=== PATIENT | male | born 1955 | race Caucasian/White ===

== ENCOUNTER 2020-01-26 08:11 | Outpatient (CLI) | payer MEDICARE, BC, SELFPAY ==
[2020-01-26 08:55] VITALS: BMI 29.4
--- NOTE | 2020-01-26 08:55 | NMCV_ITS ---
NM too perf SPECT r/s* [id number] Pb Tejeda III Age: 64 Gender: M : 1955 Exam Date: 01/26/2020 08:55 Ordering Phys: Tatiana Spring NP Technologist: NIALL Islas Exam Location: [facility] Indications: CHEST PAIN STRESS TEST Please see separate stress test report in [facility] for full findings IMAGE PROTOCOL Rest/Stress 1 Lexiscan Day Radiopharmaceutical Dose (mCi) Administration Site Administered by Rest: Tc-99m 11.0 IV NIALL Islas Sestamibi Stress:Tc-99m 33.0 IV NIALL Corona Sestamibi Rest: 26-Jan-2020 60 Discovery 630 Stress: 26-Jan-2020 30 Discovery 630 0.4mg Lexiscan. Images obtained in supine and prone position. SPECT RESULTS Technical Quality: Excellent Raw Data Analysis: Normal Image Corrections: No attenuation or motion correction applied Summed Stress Score: 0 Summed Rest Score: 7 Summed Difference Score: 0 PERFUSION FINDINGS SPECT images demonstrate homogeneous tracer distribution throughout the myocardium. FUNCTIONAL RESULTS (calculated via Gated SPECT) Stress Image LV EF (%): 70 Stress EDV (mL):113 TID: 1.15 Stress ESV (mL):34 Rest Image LV EF (%): 70 FUNCTIONAL FINDINGS: There is normal left ventricular systolic function. IMPRESSIONS Myocardial perfusion imaging is normal. TID ratio is elevated 1.1 which could be secondary to left-ventricular hypertrophy/subendocardial ischemia in the absence of other parameters for multivessel coronary artery disease. EKG segment will be documented separately Caitlin Mckay MD (Electronically Signed) Final Date: 26 January 2020 17:29 S
--- NOTE | 2020-01-26 08:55 | ECG_ITS ---
[facility] Test Date: 2020-01-26 Pat Name: Pb Tejeda III Department: Room: Gender: Male Manager Of Compensation: Danika Oliver : 1955 Requested By: Tatiana Spring Order Number: [id number] Phoebe MD: Kash Zamudio M.D. Interpretive Statements NAME OF STUDY: LEXISCAN SESTAMIBI STRESS TEST INDICATION: Chest Pain, LEXISCAN STRESS TEST ORDERING PHYSICIAN: Unknown CLINICAL INFORMATION: Unknown INTERPRETATION: 1. The patient was brought to the laboratory where Lexiscan was infused over 20 seconds. The resting blood pressure was 154/89. Maximum blood pressure was 156/89. The resting heart rate was 78 beats per minute. The maximum heart rate is 90 beats per minute. 2. The baseline electrocardiogram reveals sinus rhythm and is a normal tracing 3. With Lexiscan infusion, there were no ST segment changes to suggest ischemia. 4. The patient experienced no symptoms or arrhythmias during the examination. CONCLUSION: 1. Unremarkable Lexiscan infusion. 2. Nuclear imaging to follow. Electronically Signed On 01-26-2020 17:23:12 CDT by Kash Zamudio M.D. [id number]
[2020-01-26 11:18] VITALS: BP 150/79; PULSE 90
== END 2020-01-26 08:12 | disposition home or self-care (01) ==
LOC: RAD 08:14 → CDL 08:34
PROVIDERS: PCP Family Medicine; Visit Provider Nurse Practitioner Family
DX: R07.9 Chest pain, unspecified (principal)
CPT/HCPCS: 78452; 93017; A9500; J2785

== ENCOUNTER → 2020-08-03 16:59 | Outpatient (BNVA) | payer MEDICARE, BC, SELFPAY | PROVIDERS: PCP Family Medicine; Visit Provider Nurse Practitioner Family | DX: J06.9 Acute upper respiratory infection, unspecified (principal); Z20.828 Contact with and (suspected) exposure to other viral communicable diseases | CPT/HCPCS: 87635 ==

== ENCOUNTER → 2022-03-20 12:34 | Outpatient (BNVA) | payer MEDICARE, BC, SELFPAY | PROVIDERS: PCP Family Medicine; Visit Provider Otolaryngology | DX: J31.0 Chronic rhinitis (principal); J32.9 Chronic sinusitis, unspecified; G47.33 Obstructive sleep apnea (adult) (pediatric); E66.9 Obesity, unspecified; Z68.32 Body mass index [BMI] 32.0-32.9, adult | CPT/HCPCS: 99203; 99204 ==

== ENCOUNTER 2022-05-19 11:50 | Outpatient (CLI) | payer MEDICARE, BC, SELFPAY ==
--- NOTE | 2022-05-19 | USCV_ITS ---
Pb Tejeda Age: 66 Gender: M : 1955 Exam Date: 05/19/2022 12:08 Ordering Phys: Tatiana Spring NP Technologist: CT Exam Location: [facility] [place] Indication: aaa HISTORY: Diameter (cm) AP x Transverse x Length Velocity (cm/s) Waveform Prox Aorta: 2.74 x 2.77 x 92.30 Triphasic Mid Aorta: 1.87 x 1.93 x 97.00 Triphasic Distal Aorta: 1.42 x 1.75 x 75.70 Triphasic Right Iliac Prox: 1.09 x 1.29 x 62.20 Triphasic Left Iliac Prox: 1.25 x 1.47 x 67.00 Triphasic Stent Prox Landing x x Aneurysmal Sac Max x x Lt Lat Sac Dim Rt Lat Sac Dim Stent Dist Landing x x Right Iliac Stent x x Left Iliac Stent x x Right Renal Art Left Renal Art FINDINGS: Comparison: none available. No evidence of abdominal aortic aneurysm. Ectatic abdominal aorta with evidence of atherosclerotic plaque noted. Normal Doppler flow velocites noted throught the aorta and common iliac arteries. CONCLUSIONS No evidence of abdominal aortic or bilateral iliac aneurysm. Dr. Tete Mckinney DO (Electronically Signed) Final Date: 19 May 2022 14:25 S
== END 2022-05-19 11:51 | disposition home or self-care (01) ==
LOC: RAD 11:54
PROVIDERS: PCP Nurse Practitioner Family; Visit Provider Nurse Practitioner Family
DX: E11.65 Type 2 diabetes mellitus with hyperglycemia (principal); I10 Essential (primary) hypertension; E78.5 Hyperlipidemia, unspecified; Z68.36 Body mass index [BMI] 36.0-36.9, adult
CPT/HCPCS: 76706

== ENCOUNTER → 2023-01-03 09:23 | Outpatient (BNVA) | payer MEDICARE, BC, SELFPAY | PROVIDERS: PCP Nurse Practitioner Family; Referring Provider Dermatology; Visit Provider Specialist | DX: M16.11 Unilateral primary osteoarthritis, right hip (principal) | CPT/HCPCS: 73502; 99204 ==

== ENCOUNTER → 2023-01-03 09:34 | Outpatient (BNVA) | payer MEDICARE, BC, SELFPAY | PROVIDERS: PCP Nurse Practitioner Family; Referring Provider Dermatology; Visit Provider Specialist | DX: M25.551 Pain in right hip (principal); M16.11 Unilateral primary osteoarthritis, right hip | CPT/HCPCS: 73502 ==

== ENCOUNTER 2023-01-22 14:47 | Outpatient (CLI) | payer MEDICARE, SELFPAY ==
--- NOTE | 2023-01-22 14:56 | US_ITS ---
WS: [id number] INDICATION: LEFT forearm lump TECHNIQUE: Ultrasound soft tissue LEFT forearm FINDINGS: Ultrasound soft tissue LEFT forearm area of concern. Normal underlying subcutaneous soft ti ssues. No focal cystic or solid abnormalities. No drainable fluid collections. US/US soft tissue/extremity [id number] IMPRESSION: No suspicious abnormalities in the area of concern.
== END 2023-01-22 14:48 | disposition home or self-care (01) ==
PROVIDERS: PCP Nurse Practitioner Family; Visit Provider Nurse Practitioner Family
DX: M79.632 Pain in left forearm (principal)
CPT/HCPCS: 76882

== ENCOUNTER 2023-01-24 07:37 | Outpatient (CLI) | payer MEDICARE, SELFPAY ==
--- NOTE | 2023-01-24 08:00 | MR_ITS ---
WS: [id number] MRI RIGHT HIP without CONTRAST. COMPARISON: 01/03/2023 radiographs. Multiplanar, multisequence imaging is performed without contrast. There is a large amount of marrow edema involving the RIGHT femoral head and neck. Increased T2 signa l with diffuse low signal on the T1 sequences. Complete loss of the joint space. Subchondral cystic c hanges with loss of cartilage throughout the RIGHT hip. There is also a small amount of edema within the acetabulum. No definite fracture is identified. There is no collapse of the femoral head. At this time no typical changes of osteonecrosis. Small amount of fluid surrounding the hip. Mild narrowing of the LEFT hip joint. No marrow edema. MR/MR hip RT wo con* [id number] IMPRESSION: 1. Advanced degenerative joint disease involving the RIGHT hip. There is marro w edema on both sides of the hip joint with loss of cartilage. 2. Osteochondral changes along the femoral head articular surface. No collapse of the femoral head and no typical changes for osteonecrosis. 3. No definite acute fracture is identified.
== END 2023-01-24 07:38 | disposition home or self-care (01) ==
PROVIDERS: PCP Nurse Practitioner Family; Visit Provider Specialist
DX: M16.11 Unilateral primary osteoarthritis, right hip (principal)
CPT/HCPCS: 73721; 99204

== ENCOUNTER → 2023-02-02 09:54 | Outpatient (BNVA) | payer MEDICARE, SELFPAY | PROVIDERS: PCP Nurse Practitioner Family; Visit Provider Clinical Nurse Specialist Adult Health | DX: Z01.818 Encounter for other preprocedural examination (principal) | CPT/HCPCS: 81000 ==

== ENCOUNTER 2023-02-06 09:29 | Observation (INO) | payer MEDICARE, SELFPAY ==
[2023-02-06] VITALS (15 sets, daily range): BP systolic 118–164; BP diastolic 80–107; PULSE 58–89; RESP 14–18; TEMP 36.1–38; O2SAT 94–100; BMI 36.3
[2023-02-06] MEDS: CELEcoxib 200 mg Capsule 400 MG PO (06:30)
[2023-02-06] MEDS: gabapentin 300 mg Capsule PO (06:31)
[2023-02-06] MEDS: acetaminophen 1,000 MG/100 ML PIGGYBACK 400 MG IV ×3 (06:50→23:05)
[2023-02-06 06:52] LABS: Glucose Point of Care 171 mg/dL (70-110)
--- NOTE | 2023-02-06 06:54 | P.HPUD_ITS ---
Surgery/Procedure H&P Update DATE OF PROCEDURE: February 06, 2023 DATE H&P PERFORMED: 02/01/23 H&P UPDATE INFORMATION: I have reviewed H&P completed within last 30 days, I have examined patient prior to procedure, No changes to prior documentation and H&P is in [facility] [place] on date indicated PLANNED PROCEDURE: Operation Date: 02/06/23 07:00 Proposed Procedures p RIGHT TOTAL HIP ARHTROPLASTY 39162,M16.9(Right) - Suzi Campos MD Related Problem List Diagnoses (1) Primary osteoarthritis of right hip:
[2023-02-06] MEDS: sodium chloride 0.9% 1,000 ML 30 ML IV (07:05)
[2023-02-06] MEDS: ceFAZolin 2,000 MG in sodium chloride 0.9% (plus) 50 ML 100 MG IV ×3 (07:11→23:20)
--- NOTE | 2023-02-06 07:54 | SUR.OPER ---
called S.O. and notified her of surgical start.
[2023-02-06] MEDS: vancomycin 1,000 MG SDV 1000 MG XX (07:56)
[2023-02-06] MEDS: ceFAZolin 1,000 mg SDV 1000 MG IRRIGATION (07:57)
--- NOTE | 2023-02-06 08:35 | ANES.PREANE2 ---
Pre-Anesthetic Assessment Height/Weight: Height 1.8 m Weight 118.388 kg Temp Pulse Resp BP Pulse Ox O2 Del Method 98.4 F 76 18 155/90 94 Room Air 02/06/23 06:22 02/06/23 06:22 02/06/23 06:22 02/06/23 06:22 02/06/23 06:22 02/06/23 06:23 Operation Date: 02/06/23 07:00 Proposed Procedures p RIGHT TOTAL HIP ARHTROPLASTY 23608,M16.9(Right) - Suzi Campos MD Familial anesthetic complications: none Was Beta Rhoda taken within 24 hours: Yes Was Clonidine taken within 24 hours: N/A Last intake: Intake Last Liquid Date 02/05/23 Last Liquid Time 19:00 Last Solid Date 02/05/23 Last Solid Time 13:00 Social No alcohol and No tobacco Exam alert, oriented x 3, clear to auscultation bilaterally and regular rate & rhythm Airway Submandibular: within normal limits Cervical ROM: within normal limits Mallampati: Class II CV/HEM Hypertension Metabolic Diabetes Mellitus, Hyperlipidemia and Morbid Obesity [facility] [place] [facility] Lower Back Pain and Osteoarthritis/DJD Anesthetic Plan ASA status: 3 Anesthesia: Regional (specify below) (SAB) Medications/Allergies Home Medications Medication Instructions Recorded Confirmed Last Taken Type aspirin 81 mg tablet,delayed 81 mg PO DAILY 07/08/20 02/06/23 01/30/23 History release (Adult Aspirin Regimen) ibuprofen 800 mg tablet 800 mg PO Q8H 07/08/20 02/06/23 02/05/23 History metformin 1,000 mg tablet 1,000 mg PO BID 07/08/20 02/06/23 02/05/23 History metoprolol tartrate 50 mg tablet 50 mg PO DAILY 07/08/20 02/06/23 02/06/23 History tramadol 50 mg tablet 50 mg PO Q6H PRN Pain 07/08/20 02/06/23 02/05/23 History gabapentin 400 mg capsule 400 mg PO DAILY 03/20/22 02/06/23 02/04/23 History nitroglycerin 0.3 mg sublingual 0.3 mg sublingual Q5M PRN Chest 01/03/23 02/06/23 Unknown History tablet Pain dulaglutide 0.75 mg/0.5 mL 0.75 mg SUBCUT .weekly 02/01/23 02/06/23 01/30/23 History subcutaneous pen injector (Trulicity) Allergies Allergy/AdvReac Type Severity Reaction Status Date / Time oxycodone [From Percocet] Allergy ADR-halluci Verified 02/06/23 06:09 nations Sulfa (Sulfonamide Allergy welps Verified 02/06/23 06:09 Antibiotics) Current Medications Generic Name Dose Route Start Last Admin Trade Name Freq PRN Reason Stop Dose Admin Sodium Chloride 1,000 mls @ 30 mls/hr 02/06/23 06:00 02/06/23 07:05 Sodium Chloride 0.9% IV 02/07/23 05:59 30 mls/hr .Q24H TIM Administration PFSH Anesthesia Medical History (Updated 02/01/23 @ 09:58 by Patrick Stovall NP) BCC (basal cell carcinoma of skin) 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 HTN (hypertension) Surgical History (Updated 02/01/23 @ 09:53 by Patrick Stovall NP) H/O knee surgery H/O shoulder surgery History of back surgery History of kidney surgery Hx of hernia repair Family History (Updated 02/01/23 @ 09:54 by Patrick Stovall NP) Denies family history of Clotting disorder Anesthesia complication Bleeding disorder Social History Smoking and tobacco status: never smoked Alcohol intake: current Alcohol intake frequency: few times a month Alcohol type: beer Data Anesthesia Cardiac Studies: Sestamibi Stress Test (Cardiology) 01/26/20
--- NOTE | 2023-02-06 10:12 | PC.NURSE ---
Pt arrived to PACU, awake, resting comfortably, dressing to right hip C/D/I, right foot p/w/d, cap refill < 3 seconds, good pedal pulse noted. Ice pack applied. Pt reports sensation above level L1. Eaton catheter patent and draining. Foot pump to left foot on and running. Scant bleeding noted to R nare, nasal airway in procedure.
--- NOTE | 2023-02-06 10:28 | XR_ITS ---
WS: [id number] Exam: XR pelvis 1-2V* [id number] Date/Time of Exam: 02/06/2023 10:38 AM Reason For Exam: S/P CHEKO Right total hip arthroplasty is noted. Postoperative changes in the adjacent soft tissues. XR/XR pelvis 1-2V* [id number] IMPRESSION: 1. Right total hip arthroplasty.
--- NOTE | 2023-02-06 11:03 | P.OP_ITS ---
Operative Report Date of procedure: February 06, 2023 Pre-op diagnosis: Severe osteoarthritis right hip Post-op diagnosis: Severe osteoarthritis right hip Post-op findings: Severe degenerative osteoarthritis right hip Procedure done: Right total hip arthroplasty Implants: The [place] total hip system with a size 56 mm by F alpha code Trident II Tritanium acetabular shell with an MDM liner size 46 inner diameter by F alpha code.? A size 5 Accolade II 127? neck angle hip stem with a size 28 mm x +0 mm Biolox delta ceramic femoral head and a mormon MDM X3 insert size 46F Surgeon: Suzi Campos Senior Strategy Manager: [facility] operating room technicians Anesthesia: MAC (With spinal, ASA 3. Preoperative adductor canal block) Estimated blood loss (mL): 300 IV fluids (mL): 1,200 Urine output (mL): 250 Complications: None Findings: Severe degenerative osteoarthritis of the right hip with deformity of the femoral head. The hip stable at 90 degrees of flexion with 80 degrees of internal rotation. It also was stable to external rotation. Condition: stable Disposition: PACU (Then transferred to floor for postoperative rehabilitation and pain management) Brief History: Pb Tejeda is a 67 year old gentleman presenting today for right total hip arthroplasty. Patient states his pain started about 6 months ago. He does not recall any injury, but he states that the pain is gradually worsening. He states 5/10 pain most of the time. Pain is worse at night. He states the pain is in his groin area and radiates below the knee. He is not able to tolerate rotational movements without sharp-stabbing pain. He states that he went to [place] to have intra-articular cortisone injections from Dr. Frank. The first injection helped for a few weeks, and the second didn't give any relief. He denies having tried physical therapy. After discussion in the office, the patient elected to have right total hip arthroplasty. Risks and complications were discussed with him. Consents were signed and questions were answered. Procedure: Patient was brought to the operating theater.? He was transferred to the operating room table and subsequently administered a spinal anesthesia with MAC, ASA 3 with adductor canal block supplementally.? Following administration of adequate anesthesia, the patient was placed in full lateral position and held in position with a pegboard.? The patient's right lower extremity was then prepped and draped in usual fashion utilizing DuraPrep.? It was draped free.? Following prepping and draping a surgical pause was performed.? At the time of surgical pause, we identified the site and side of surgery.? We also identified the patient and preoperative surgical markings.? Confirmation was made of equipment availability.? Additionally, the patient's preoperative IV antibiotic, Ancef 2 g, and TXA administration was confirmed as well.? X-rays were also reviewed. Following the surgical pause, an incision was made centering over the patient's greater trochanter continuing proximally and distally as necessary to allow access to the hip joint.? Dissection continued through skin and soft tissues using a scalpel, and hemostasis was obtained using electrocautery. The tensor fascia nadia was identified and incised longitudinally.? Sciatic nerve was identified and protected throughout the surgical procedure.? A Charnley U retractor was placed after the tensor fascia nadia had been incised longitudinally, and the sciatic nerve had been identified.? The hip was internally rotated, and the piriformis muscle was identified and tagged. Piriformis muscle along with the remaining short external rotators were then incised from the posterior aspect of the hip joint.? These were retracted posteriorly.? The capsule was entered in a T-type fashion with the edges being tagged, and subsequently the hip was dislocated.? Dislocation was quite dif ficult secondary to the length of the patient's femoral neck.? Additionally, there was very thickened labrum as well.? This was excised.? Following hip dislocation, a femoral neck osteotomy was accomplished in the appropriate position. The head was disposed of.? We then evaluated the acetabulum. The femur was retracted anteriorly.? Soft tissues were retracted, and the labrum was removed.? We then began reaming.? Once the femoral head was removed, there was noted to be significant loss of cartilage over the head and within the acetabulum.? We reamed to a size 55 to allow for a size 56 acetabular shell.? The acetabulum was impacted into position.? The MDM liner was then impacted into position with care being taken to assure it seated appropriately.? It was noted that the acetabulum matched the bony anatomy.? The cup was noted to seat nicely and had good fixation upon impact. Attention was directed to the proximal femur.? The proximal femur was lifted out of the wound.? A canal finder was passed after the box chisel.? The reamer was used to lateralize.? We then began broaching. We broached sequentially and had excellent fit and fill with the size 5 broach. ? A trial reduction was ac complished with a +0 mm femoral head.? Subsequently, we increased to a +4 mm offset femoral head. With this in place, we had the above stabilities, and at that time, we felt that we had equal leg lengths.? We also felt that we had excellent stability noted above. Therefore, trial components were removed after the hip was dislocated.? The size 5 Accolade II 127? neck angle stem was impacted into position without difficulty and onto this was placed a +4 mm x 28 mm ceramic femoral head which had been assembled into the MDM insert size 46F.? With a +4 mm femoral head, we had the above-noted stability.? The stem was noted to seat nicely prior to placement of the femoral head.? The wound was copiously irrigated with 20 mL of Betadine and 500 mL of normal saline mixed together.? Subsequently, we suctioned this out and irrigated the wound copiously with lactated Ringer's.? At this time, with all components in appropriate position, the hip was reduced.? Following reduction of the prosthesis once again, we confirmed the stability of the hip.? Leg lengths were also felt to be satisfactory. Being satisfied with the prosthesis, attention was directed to closure.? Closure was accomplished with 0 Vicryl in the capsular tissues.? Piriformis was reattached with 0 Vicryl as well.? Tensor fascia nadia was closed with 0 Vicryl in an interrupted fashion.? The subcutaneous tissues were closed with a combination of 0 Vicryl and 2-0 Monocryl.? Vancomycin powder and a Gelfoam thrombin mixture was placed into the wound as well.? The skin was closed with a running 3-0 Monocryl followed by Dermabond Prineo followed by OpSite.? The patient was placed in an abduction pillow.? He was returned the Recovery Room in a satisfactory condition and will be discharged to the floor for postoperative rehabilitation and pain management.? There were no complications or specimens. Related Problem List Diagnoses (1) Primary osteoarthritis of right hip: (2) Obesity (BMI 30-39.9):
[2023-02-06 12:53] LABS: Glucose Point of Care 119 mg/dL (70-110)
[2023-02-06] MEDS: chlorhexidine gluconate 0.12% Btl 473 mL 30 ML MUCOUS MEM ×3 (13:09→20:48)
--- NOTE | 2023-02-06 13:42 | ANE.PACU2 ---
Inpatient post-anesthesia follow up: Airway intact: Yes Vital signs: Temperature 97.0 F Pulse Rate 61 Respiratory Rate 18 Blood Pressure 153/97 Pulse Oximetry 100 Oxygen Delivery Me thod Room Air Oxygen Flow Rate Fraction of Inspir ed Oxygen Hydration adequate: Yes Nausea and vomiting: No Pain level: 3 Mental status: Baseline
[2023-02-06] MEDS: TRAMadol 50 mg Tablet PO ×2 (14:34→20:59)
[2023-02-06] MEDS: HYDROcodone-acetaminophen 5-325 mg Tablet 1 TAB PO ×2 (17:38→21:42)
[2023-02-06] MEDS: mupirocin oint 22 gm 1 APPLIC NASAL (17:38)
[2023-02-06] MEDS: iron polysaccharide complex 150 mg Capsule PO (17:38)
[2023-02-06] MEDS: metformin 500 mg Tablet 1000 MG PO (17:38)
[2023-02-06] MEDS: calcium carbonate 500 mg Chew Tablet 1000 MG PO (17:39)
[2023-02-06] MEDS: CELEcoxib 200 mg Capsule PO (17:39)
[2023-02-06] MEDS: sennosides-docusate Tablet 2 TAB PO (17:40)
[2023-02-06 21:30] LABS: Glucose Point of Care 168 mg/dL (70-110)
[2023-02-07] VITALS: BP 127/76; PULSE 80; RESP 16; TEMP 37.2; O2SAT 93
[2023-02-07] MEDS: HYDROcodone-acetaminophen 5-325 mg Tablet 1 TAB PO ×3 (01:52→09:38)
[2023-02-07 03:43] VITALS: BP 132/74; PULSE 77; RESP 16; TEMP 36.9; O2SAT 95
[2023-02-07 05:16] LABS: Basophils % 0.5 %; Eosinophils # 0.3 10^3/uL (0.0-0.8); Eosinophils % 3.9 %; Hematocrit 39.6 % (42.0-52.0); Hemoglobin 13.5 g/dL (11.7-16.6); Lymphocytes # 1.7 10^3/uL (0.8-4.8); Mean Corpuscular HGB Conc 34.1 g/dL (30.0-36.0); Mean Corpuscular Hemoglobin 30.4 pg (28.0-34.0); Mean Corpuscular Volume 89.2 fl (80-94); Mean Platelet Volume 9.2 fL (7.4-10.4); Monocytes # 0.6 10^3/uL (0.2-0.9); Monocytes % 6.4 %; Neutrophils # 6.12 10^3/uL (1.8-7.7); Neutrophils % 69.7 %; Nucleated Red Blood Cells % 0 %; Platelet Count 203 10^3/cmm (130-400); Red Blood Count 4.44 10^6/uL (4.1-5.3); Red Cell Distribution Width 12.6 % (12.1-15.1); White Blood Count 8.8 10^3/uL (4.0-10.0)
[2023-02-07] MEDS: CELEcoxib 200 mg Capsule PO (05:46)
[2023-02-07 05:55] LABS: Anion Gap 10.1 (5-19); Blood Urea Nitrogen 19 mg/dL (8-23); Calcium 8.6 mg/dL (8.5-10.5); Carbon Dioxide 26 mmol/L (22-29); Chloride 103 mmol/L (98-107); Glomerular Filtration Rate 112.8 mL/min (90-130); Glucose 126 mg/dL (65-115); Osmolality Calculated 284 mOsm/kg (285-295); Potassium 4.1 mmol/L (3.5-5.1); Sodium 135 mmol/L (136-145)
[2023-02-07 06:30] LABS: Glucose Point of Care 122 mg/dL (70-110)
[2023-02-07] MEDS: acetaminophen 1,000 MG/100 ML PIGGYBACK 400 MG IV (06:33)
[2023-02-07] MEDS: ceFAZolin 2,000 MG in sodium chloride 0.9% (plus) 50 ML 100 MG IV (06:47)
[2023-02-07 07:55] VITALS: BP 132/78; PULSE 88; RESP 15; O2SAT 95
[2023-02-07] MEDS: metformin 500 mg Tablet 1000 MG PO (09:35)
[2023-02-07] MEDS: metoprolol tartrate 50 mg Tablet PO (09:37)
[2023-02-07] MEDS: gabapentin 400 mg Capsule PO (09:37)
[2023-02-07] MEDS: aspirin 325 mg EC Tablet PO (09:38)
[2023-02-07] MEDS: calcium carbonate 500 mg Chew Tablet 1000 MG PO (09:38)
[2023-02-07] MEDS: iron polysaccharide complex 150 mg Capsule PO (09:38)
[2023-02-07] MEDS: cholecalciferol (vitamin D3) 1,000 unit Tablet 1000 UNIT PO (09:38)
[2023-02-07] MEDS: sennosides-docusate Tablet 2 TAB PO (09:38)
[2023-02-07] MEDS: multivitamin therapeutic Tablet 1 TAB PO (09:38)
[2023-02-07] MEDS: chlorhexidine gluconate 0.12% Btl 473 mL 30 ML MUCOUS MEM ×2 (09:44→12:30)
[2023-02-07 11:47] VITALS: BP 152/98; PULSE 83; RESP 16; O2SAT 97
[2023-02-07 12:00] VITALS: BP 144/88; PULSE 89; RESP 17; TEMP 37.1; O2SAT 97
[2023-02-07] MEDS: TRAMadol 50 mg Tablet PO (12:30)
--- NOTE | 2023-02-07 12:42 | P.DS_ITS ---
Discharge Providers Date of Admission: 02/06/23 09:29 Date of Discharge: February 07, 2023 Attending Provider at Admission: Suzi Campos MD Attending Provider at Discharge: Suzi Campos MD Primary Care Provider: Tatiana Spring NP Diagnoses at Discharge Discharge Diagnosis (1) Status post total hip replacement, right: Status: Acute Permanent problem details: Date of procedure: February 06, 2023 Diagnosis: Severe osteoarthritis right hip Procedure done: Right total hip arthroplasty Implants: The Tank total hip system with a size 56 mm by F alpha code Trident II Tritanium acetabular shell with an MDM liner size 46 inner diameter by F alpha code. A size 5 Accolade II 127? neck angle hip stem with a size 28 mm x +0 mm Biolox delta ceramic femoral head and a yarsani MDM X3 insert size 46F (2) Primary osteoarthritis of right hip: Status: Acute Reason for Visit Reason for Visit: 33243 M16.9 Brief History: Pb Tejeda is a 67 year old gentleman who presented for same-day right total hip arthroplasty. Patient states his pain started about 6 months ago. He does not recall any injury, but he states that the pain is gradually worsening. He states 5/10 pain most of the time. Pain is worse at night. He states the pain is in his groin area and radiates below the knee. He is not able to tolerate rotational movements without sharp-stabbing pain. He states that he went to [facility] to have intra-articular cortisone injections from Dr. Frank. The first injection helped for a few weeks, and the second didn't give any relief. After discussion in the office, the patient elected to have right total hip arthroplasty.? Risks and complications were discussed with him.? Consents were signed and questions were answered. Hospital Course Hospital Course This 67-year-old gentleman was admitted for same-day right total hip arthroplasty which he tolerated well. The surgery was uneventful. The patient was placed on observation status in hospital for initiation of rehabilitation and monitoring of pain. The patient tolerated the surgical procedure well and also postoperative rehabilitation. Pain was well managed, and the patient was independent on the first postoperative day. He therefore was discharged home with home health. There were no complications. There was no evidence of DVT. He will follow-up with me in the office as scheduled. Physical Exam Const: COMMON NORMALS: no acute distress, average body habitus, patient oriented x3 and alert GENERAL APPEARANCE: cooperative and comfortable ORIENTATION/CONSCIOUSNESS: Yes awake HENMT: COMMON NORMALS: normocephalic and atraumatic HEAD & SCALP: normocephalic and atraumatic Eye: GENERAL EYE: appearance normal, both eyes and all related structures Chest: COMMONS NORMALS: normal inspection of the chest Resp: COMMON NORMALS: normal respiratory effort EFFORT & INSPECTION: Yes able to speak in complete sentences and Yes symmetric chest movement Extremity: RIGHT LOWER EXTREMITY: Yes hip joint (Dressing is dry and intact) Right hip: Yes inspection (No significant swelling or ecchymosis), Yes palpation (Minimal tenderness), Yes ROM (Not evaluated) and Yes neurovascular exam (No evidence of DVT) Neuro: COMMON NORMALS: patient oriented x3 SENSORIUM/ORIENTATION: Yes alert Psych: COMMON NORMALS: mental status grossly normal APPEARANCE: Yes grossly normal ATTITUDE: Yes calm and Yes engaged ATTENTION/CONCENTRATION: Yes attention grossly intact Skin: COMMON NORMALS: no rashes or lesions noted GENERAL SKIN EXAM: no rashes or lesions noted Urinary Catheter Management: [place]: Cath Placed During This Visit: yes, but has since been removed by the nurse Reason for Continuing Indwelling Catheter: Acute Urinary Retention or Obstruction Urinary Catheter Date of Insertion: 02/06/23 Urinary Catheter Time of Insertion: 07:35 Date Urinary Catheter Removed: 02/07/23 Time Urinary Catheter Discontinued: 05:40 Discharge Data Studies Completed and Pending Completed Studies During Hospitalization Category Date Time Status XR pelvis 1-2V* [id number] Urgent Exams 02/06/23 10:28 Completed Radiology Impressions Pelvis X-Ray 02/06/23 10:28 IMPRESSION: 1. Right total hip arthroplasty. Laboratory Results WBC 8.8 10^3/uL (4.0-10.0) 02/07/23 04:59 RBC 4.44 10^6/uL (4.1-5.3) 02/07/23 04:59 Hgb 13.5 g/dL (11.7-16.6) 02/07/23 04:59 Hct 39.6 % (42.0-52.0) L 02/07/23 04:59 MCV 89.2 fl (80-94) 02/07/23 04:59 MCH 30.4 pg (28.0-34.0) 02/07/23 04:59 MCHC 34.1 g/dL (30.0-36.0) 02/07/23 04:59 RDW 12.6 % (12.1-15.1) 02/07/23 04:59 Plt Count 203 10^3/cmm (130-400) 02/07/23 04:59 MPV 9.2 fL (7.4-10.4) 02/07/23 04:59 Neut % (Auto) 69.7 % 02/07/23 04:59 Lymph % (Auto) 19.0 % 02/07/23 04:59 Stoddard % (Auto) 6.4 % 02/07/23 04:59 Eos % (Auto) 3.9 % 02/07/23 04:59 Baso % (Auto) 0.5 % 02/07/23 04:59 Neut # (Auto) 6.12 10^3/uL (1.8-7.7) 02/07/23 04:59 Lymph # (Auto) 1.7 10^3/uL (0.8-4.8) 02/07/23 04:59 Stoddard # (Auto) 0.6 10^3/uL (0.2-0.9) 02/07/23 04:59 Eos # (Auto) 0.3 10^3/uL (0.0-0.8) 02/07/23 04:59 Baso # (Auto) 0.0 10^3/uL (0.0-0.1) 02/07/23 04:59 Nucleated RBC % (auto) 0 % 02/07/23 04:59 Nucleated RBCs # 0.0 /100WBC 02/07/23 04:59 Sodium 135 mmol/L (136-145) L 02/07/23 04:59 Potassium 4.1 mmol/L (3.5-5.1) 02/07/23 04:59 Chloride 103 mmol/L (98-107) 02/07/23 04:59 Carbon Dioxide 26 mmol/L (22-29) 02/07/23 04:59 Anion Gap 10.1 (5-19) 02/07/23 04:59 BUN 19 mg/dL (8-23) 02/07/23 04:59 Creatinine 0.7 mg/dL (0.7-1.2) 02/07/23 04:59 GFR Calculation 112.8 mL/min (90-130) 02/07/23 04:59 Glucose 126 mg/dL (65-115) H 02/07/23 04:59 POC Glucose 168 mg/dL (70-110) H 02/06/23 21:20 Calculated Osmolality 284 mOsm/kg (285-295) L 02/07/23 04:59 Calcium 8.6 mg/dL (8.5-10.5) 02/07/23 04:59 Vitals Last Vital Signs Temp 98.8 F 02/07/23 12:00 Pulse 89 02/07/23 12:00 Resp 17 02/07/23 12:00 BP 144/88 02/07/23 12:00 Pulse Ox 97 02/07/23 12:00 O2 Del Method Room Air 02/07/23 11:47 Discharge Plan Discharge Patient Disposition: Home Health Service Condition: Stable Prescriptions: New celecoxib 200 mg Capsule 200 mg PO Q12H 30 Days Qty: 60 0RF aspirin 325 mg Tablet,Delayed Release (Dr/Ec) 325 mg PO DAILY Qty: 30 0RF hydrocodone-acetaminophen 10-325 mg tablet 1 tab PO Q4H PRN (Reason: pain) 7 Days Qty: 30 0RF Continued metformin 1,000 mg tablet 1,000 mg PO BID metoprolol tartrate 50 mg tablet 50 mg PO DAILY aspirin [Adult Aspirin Regimen] 81 mg tablet,delayed release (DR/EC) 81 mg PO DAILY tramadol 50 mg tablet 50 mg PO Q6H PRN (Reason: Pain) gabapentin 400 mg capsule 400 mg PO DAILY nitroglycerin 0.3 mg tablet, sublingual 0.3 mg sublingual Q5M PRN (Reason: Chest Pain) Rx Instructions: do not exceed 3 doses per episode Trulicity 0.75 mg/0.5 mL pen injector 0.75 mg SUBCUT .weekly Held ibuprofen 800 mg tablet 800 mg PO Q8H Hold Instructions: Resume on 03/09/23. Resume after you have completed Celebrex. Discharge Orders: Discharge Order (Routine); Ordered 02/07/23 Ordered By: Suzi Campos Referrals: [facility] ([facility]) [Outside] Tatiana Spring NP [Primary Care Provider] - 02/13/23 8:30 am Suzi Campos MD [Physician] - 02/26/23 9:45 am Discharge Diet: Advance as tolerated Discharge Activity: Increase activity as tolerated, Limit activity as instructed and Use walker/crutches as instructed Patient Instructions: Hydrocodone/Acetaminophen (By mouth), Aspirin (By mouth), Celecoxib (By mouth), Total Hip Replacement (GEN), Joint Replacement Stoplight, Opioid Safety Activity Restrictions/Additional Instructions: Posterior hip precautions. Ice to right hip. Weightbearing as tolerated. Work with physical therapy on range of motion and strengthening. Discharge Attestations Time Spent in Discharge Care*: greater than 30 min Specific Discharge Activities: educating patient, documenting/other paperwork and evaluating patient/reviewing data Quality Metrics Clinical Quality Measures [ No reported AMI, CVA or VTE this stay] Coding Level of Care Code Acute Code for Chg Fwd Diagnoses Status post total hip replacement, right Z96.641 Primary osteoarthritis of right hip M16.11
[2023-02-07 15:19] VITALS: BP 144/88; PULSE 89; RESP 17; TEMP 37.1; O2SAT 97
== END 2023-02-07 12:50 | disposition home health service (06) ==
LOC: MEDSURG 09:30
PROVIDERS: Admitting Provider Specialist; PCP Nurse Practitioner Family; Visit Provider Specialist
PROC: (CPT 27130; principal; 2023-02-06 07:00)
DX: M16.11 Unilateral primary osteoarthritis, right hip (principal); I10 Essential (primary) hypertension; E11.9 Type 2 diabetes mellitus without complications; Z79.85 Long-term (current) use of injectable non-insulin antidiabetic drugs; Z79.84 Long term (current) use of oral hypoglycemic drugs; Z79.82 Long term (current) use of aspirin; E78.5 Hyperlipidemia, unspecified; E66.01 Morbid (severe) obesity due to excess calories; Z68.36 Body mass index [BMI] 36.0-36.9, adult
CPT/HCPCS: 27130; 36415; 36416; 51702; 72170; 80048; 82962; 85025; 97110; 97116; 97161; 97165; C1776; G0378; J0131; J0690; J2250; J2371; J2704; J3010; J3370; J7030

== ENCOUNTER → 2023-02-26 09:25 | Outpatient (BNVA) | payer MEDICARE, SELFPAY | PROVIDERS: PCP Nurse Practitioner Family; Visit Provider Specialist | DX: Z96.641 Presence of right artificial hip joint (principal) | CPT/HCPCS: 73502; 99024 ==

== ENCOUNTER → 2023-06-04 09:44 | Outpatient (BNVA) | payer MEDICARE, SELFPAY | PROVIDERS: PCP Nurse Practitioner Family; Visit Provider Specialist | DX: Z96.641 Presence of right artificial hip joint (principal); Z47.1 Aftercare following joint replacement surgery; M16.11 Unilateral primary osteoarthritis, right hip | CPT/HCPCS: 73502; 99213 ==

== ENCOUNTER 2023-06-07 14:56 | Emergency (ER) | payer OTHER, SELFPAY ==
[2023-06-07 14:59] VITALS: BP 178/107; PULSE 90; RESP 16; TEMP 37.1; O2SAT 97; BMI 37.0
--- NOTE | 2023-06-07 15:12 | XR_ITS ---
WS: [id number] Exam: XR knee LT 1-2V [id number] Date/Time of Exam: 06/07/2023 3:24 PM Reason For Exam: knee pain fall No fracture or dislocation. The joints are preserved. No joint effusion. IMPRESSION: 1. Negative LEFT knee.
--- NOTE | 2023-06-07 15:12 | XRR_ITS ---
PROCEDURE INFORMATION: Exam: XR Left Ribs with PA Chest Exam date and time: 06/07/2023 3:24 PM Age: 67 years old Clinical indication: Injury or trauma; Fall; Rib area, left side; Blunt trauma; Additional info: Fall and rib pain TECHNIQUE: Imaging protocol: Radiologic exam of the left ribs with PA chest. Views: 3 views COMPARISON: CT cervical spin wo con* [id number] 06/18/2018 12:32 PM FINDINGS: Lungs: Clear, symmetrically inflated lungs. Pleural spaces: No pleural effusion. No pneumothorax. Heart/Mediastinum: Cardiac silhouette is normal in size for technique. Bones/joints: No displaced rib fractures are evident. Bone anchor noted in each left humeral head. XR/XR ribs LT mn 3V w CXR1V [id number] IMPRESSION: No displaced rib fractures are seen, but there is limited plain film sensitivity for nondisplaced fractures. Regardless, there is no evidence of pneumothorax, pulmonary parenchymal contusion, or pleural effusion.
--- NOTE | 2023-06-07 15:21 | XR_ITS ---
WS: [id number] Exam: XR shoulder LT min 2V* [id number] Date/Time of Exam: 06/07/2023 3:25 PM Reason For Exam: fall with shoulder pain No fracture or dislocation. Rotator cuff anchors are noted in the humeral head. Minimal degenerative change of the AC joint and proximal humerus. IMPRESSION: 1. Mild DJD. No fracture or other significant finding.
[2023-06-07] MEDS: ketorolac 30 mg/mL INJ IM (15:54)
--- NOTE | 2023-06-07 16:21 | W.ED.FALL ---
HPI - Fall General: Chief Complaint: Fall Stated Complaint: fall (work comp) Time Seen by Provider: 06/07/23 15:11 History of Present Illness: patient is in today for a fall at work the patient is in today for a fall at work. 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 He reports that he tripped over a lip in the concrete and fell forward more onto his left side. He reports that his left knee has a contusion. He reports significant pain in his left shoulder and his left side chest wall and ribs. He denies any loss of consciousness or hitting his head. He was able to get himself up. He reports that as he sat in class he became more and more sore and had more pain with inspiration which prompted him to come to the ER. The patient reports that he has limited ability to raise his left arm which is consistent with when he had previous rotator cuff injury. He has had rotator cuff repair on both shoulders in the past Associated symptoms-after fall: Denies abdominal pain Review of Systems Const: Denies: fever(s) or chills Card: Reports: other (Chest wall pain left side anterior and left lateral chest wall) Resp: Reports: pain on inspiration; Denies: dyspnea GI: Denies: abdominal pain, nausea or vomiting Musc: Reports: extremity pain, joint pain and limited range of motion Skin/Breast: Reports: other (Contusion left anterior knee) [facility] PFSH: Medical History BCC (basal cell carcinoma of skin) 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 HTN (hypertension) Surgical History H/O knee surgery H/O shoulder surgery History of back surgery History of kidney surgery Hx of hernia repair Family History Denies family history of Clotting disorder Anesthesia complication Bleeding disorder Social History Smoking and tobacco/nicotine status: never used tobacco/nicotine Alcohol intake: current Alcohol intake frequency: few times a month Alcohol type: beer Physical Exam Const: COMMON NORMALS: no acute distress, patient oriented x3 and alert Neck/C-Spine: COMMON NORMALS: no JVD Chest: OTHER: Patient has tenderness just to the left of the sternum on the left anterior chest wall as well as to the left lateral chest wall mid axillary line. There is no crepitus appreciated on palpation. There is no obvious bony deformity appreciated. Resp: COMMON NORMALS: normal respiratory effort, No use of accessory muscles and clear to auscultation bilaterally AUSCULTATION: clear to auscultation bilaterally Cardio: COMMON NORMALS: no JVD, regular rate, regular rhythm, S1 normal heart sound present and S2 normal heart sound present RATE: regular rate RHYTHM: regular rhythm HEART SOUNDS: S1 normal heart sound present and S2 normal heart sound present Extremity: NARRATIVE EXTREMITY EXAM: Tenderness to palpation left anterior and lateral shoulder. No tenderness to palpation over the left humerus, deltoid, bicep region. Patient has decreased active abduction lateral or frontal above waist height. Patient is able to grab the arm with his right arm and abduct the left arm to shoulder height. No obvious bony deformity appreciated no bruising appreciated Dime size superficial abrasion left anterior knee. No obvious deformity to the knee. Mild tenderness to palpation anterior knee. Patient is able to bear weight without issue. Neuro: COMMON NORMALS: patient oriented x3, CN's II-XII intact bilaterally, moves all extremities and no focal motor deficits SENSORIUM/ORIENTATION: Yes alert Course Vital Signs: Vital signs: Vital Signs Temperature 98.8 F 06/07/23 14:59 Pulse Rate 90 06/07/23 14:59 Respiratory Rate 16 06/07/23 14:59 Blood Pressure 178/107 06/07/23 14:59 Pulse Oximetry 97 06/07/23 14:59 MDM - Fall Medical Decision Making Work related injury of shoulder, knee, chest wall. Patient is in no acute distress. Toradol x1 dose administered for pain. X-ray of the shoulder does not show any acute osseous deformity. Patient likely has injury to the rotator cuff. We will place patient in a sling and referred to orthopedics for further evaluation ongoing management. Left knee x-ray does not show any acute osseous deformity. There is a small superficial abrasion to the left anterior knee. Patient is ambulating without issue. Right knee x-ray was refused. It was initially ordered with patient's complaints of bilateral knee pain however that was misunderstanding and patient states that there is no injury to the right knee. X-ray chest and ribs? Patient reports that he is up-to-date on tetanus vaccination. Lab Data Radiology Impressions Ribs X-Ray 06/07/23 15:12 IMPRESSION: No displaced rib fractures are seen, but there is limited plain film sensitivity for nondisplaced fractures. Regardless, there is no evidence of pneumothorax, pulmonary parenchymal contusion, or pleural effusion. XR interpretation done by ED provider, pending radiology final review Discharge Plan Discharge Patient Disposition: Home Clinical Impression: Closed rib fracture, Accident while engaged in work-related activity Contusion of left shoulder Qualifiers: Encounter type: initial encounter Qualified Code(s): S40.012A - Contusion of left shoulder, initial encounter Contusion of knee Qualifiers: Encounter type: initial encounter Laterality: left Qualified Code(s): S80.02XA - Contusion of left knee, initial encounter Condition: Stable Prescriptions: No Action metformin 1,000 mg tablet 1,000 mg PO BID metoprolol tartrate 50 mg tablet 50 mg PO DAILY aspirin [Adult Aspirin Regimen] 81 mg tablet,delayed release (DR/EC) 81 mg PO DAILY tramadol 50 mg tablet 50 mg PO Q6H PRN (Reason: Pain) gabapentin 400 mg capsule 400 mg PO DAILY nitroglycerin 0.3 mg tablet, sublingual 0.3 mg sublingual Q5M PRN (Reason: Chest Pain) Rx Instructions: do not exceed 3 doses per episode Trulicity 0.75 mg/0.5 mL pen injector 0.75 mg SUBCUT .weekly aspirin 325 mg Tablet,Delayed Release (Dr/Ec) 325 mg PO DAILY Qty: 30 0RF Discharge Orders: Discharge ED (Routine); Ordered 06/07/23 Ordered By: Rocio White Referrals: Tatiana Spring NP [Primary Care Provider] - Discharge Diet: Usual diet Discharge Activity: Limit activity as instructed Patient Instructions: Rib Fracture (ED) Activity Restrictions/Additional Instructions: Preliminary read of your rib series x-ray in ER is suspicious for left-sided rib fracture. I recommend conservative treatment for this including rest. Splint with a pillow and make sure that you are coughing and deep breathing hourly so that you do not develop pneumonia. As per our discussion, you can use your ibuprofen and tramadol that you already have at home since you have allergies to other pain medications. Shoulder sling can be used as needed for relief. Ice, rest the shoulder. A referral has been made to orthopedics for further evaluation and treatment. Keep the abrasion on the knee clean and dry. Follow-up with primary care provider. Return to the ER as needed for any new or worsening symptoms Coding Level of Care Code ED [employer] Installer for Malina Malone
--- NOTE | 2023-06-08 10:51 | DCPLANNER ---
Message sent to ortho for a follow up on a shoulder injury limited abduction.
== END 2023-06-07 18:49 | disposition home or self-care (01) ==
PROVIDERS: Emergency Provider Nurse Practitioner Family; PCP Nurse Practitioner Family
DX: S80.02XA Contusion of left knee, initial encounter (principal); S40.012A Contusion of left shoulder, initial encounter; S22.32XA Fracture of one rib, left side, initial encounter for closed fracture; W01.0XXA Fall on same level from slipping, tripping and stumbling without subsequent striking against object, initial encounter; Y99.0 Civilian activity done for income or pay; E11.9 Type 2 diabetes mellitus without complications; I10 Essential (primary) hypertension; Z79.82 Long term (current) use of aspirin; Z79.84 Long term (current) use of oral hypoglycemic drugs; Z79.85 Long-term (current) use of injectable non-insulin antidiabetic drugs
CPT/HCPCS: 71101; 73030; 73560; 96372; 99284; J1885

== ENCOUNTER → 2023-11-13 10:55 | Outpatient (BNVA) | payer MEDICARE, SELFPAY | PROVIDERS: PCP Nurse Practitioner Family; Visit Provider Dermatology | DX: D48.5 Neoplasm of uncertain behavior of skin (principal); L57.0 Actinic keratosis; L57.8 Other skin changes due to chronic exposure to nonionizing radiation; D22.5 Melanocytic nevi of trunk; L82.1 Other seborrheic keratosis; Z85.828 Personal history of other malignant neoplasm of skin | CPT/HCPCS: 11102; 17000; 99213 ==

== ENCOUNTER → 2023-12-03 13:19 | Outpatient (BNVA) | payer MEDICARE, SELFPAY | PROVIDERS: PCP Nurse Practitioner Family; Visit Provider Dermatology | DX: C44.619 Basal cell carcinoma of skin of left upper limb, including shoulder (principal); C44.519 Basal cell carcinoma of skin of other part of trunk | CPT/HCPCS: 13121; 17262; 17313 ==

== ENCOUNTER → 2024-04-18 08:20 | Outpatient (BNVA) | payer MEDICARE, SELFPAY | PROVIDERS: PCP Nurse Practitioner Family; Referring Provider Nurse Practitioner Family; Visit Provider Student in an Organized Health Care Education/Training Program | DX: Z12.11 Encounter for screening for malignant neoplasm of colon (principal) | CPT/HCPCS: 99024; 99204 ==

== ENCOUNTER 2024-06-16 08:50 | Day surgery (SDC) | payer MEDICARE, SELFPAY ==
[2024-06-16 09:12] VITALS: BP 154/96; PULSE 79; RESP 18; TEMP 36.7; O2SAT 96; BMI 32.6
[2024-06-16] MEDS: sodium chloride 0.9% 1,000 ML 30 ML IV (09:20)
[2024-06-16 09:25] LABS: Glucose Point of Care 114 mg/dL (70-110)
--- NOTE | 2024-06-16 09:37 | ANES.PREANE2 ---
Pre-Anesthetic Assessment Height/Weight: Height 1.8 m Weight 106.141 kg Temp Pulse Resp BP Pulse Ox O2 Del Method 98.1 F 79 18 154/96 96 Room Air 06/16/24 09:12 06/16/24 09:12 06/16/24 09:12 06/16/24 09:12 06/16/24 09:12 06/16/24 09:12 Preop Diagnosis: screening Operation Date: 06/16/24 10:00 Proposed Procedures p Colonoscopy- 77027,G0121,Z12.11(Not Applicable) - Fred Alicea MD Familial anesthetic complications: none Was Beta Rhoda taken within 24 hours: N/A Was Clonidine taken within 24 hours: N/A Last intake: Intake Last Liquid Date 06/15/24 Last Liquid Time 14:00 Last Solid Date 06/14/24 Last Solid Time 12:00 Social No alcohol and No tobacco Exam alert and oriented x 3 Airway Submandibular: within normal limits Cervical ROM: within normal limits Mallampati: Class I Dentition: false (uppers) Pulmonary None reported CV/HEM Hypertension and Myocardial Infarction (2009- from stress. normal stress test since.) None reported Hepatic None reported GI None reported Metabolic Diabetes Mellitus, Hyperlipidemia and Morbid Obesity Musc/skel Lower Back Pain and Osteoarthritis/DJD Neuropsych Cerebrovascular Accident (2011. no deficits) Anesthetic Plan ASA status: 3 Anesthesia: Anesthesia Evaluation and MAC Medications/Allergies Home Medications Medication Instructions Recorded Confirmed Last Taken Type aspirin 81 mg tablet,delayed 81 mg PO DAILY 07/08/20 06/16/24 06/13/24 History release (Adult Aspirin Regimen) metformin 1,000 mg tablet 1,000 mg PO BID 07/08/20 06/16/24 06/15/24 History metoprolol tartrate 50 mg tablet 50 mg PO DAILY 07/08/20 06/16/24 06/14/24 History tramadol 50 mg tablet 50 mg PO Q6H Pain 07/08/20 06/16/24 06/16/24 05:40 History nitroglycerin 0.3 mg sublingual 0.3 mg sublingual Q5M PRN Chest 01/03/23 06/16/24 Unknown History tablet Pain dulaglutide 0.75 mg/0.5 mL 0.75 mg SUBCUT .weekly 02/01/23 06/16/24 06/08/24 History subcutaneous pen injector (Trulicity) gabapentin 100 mg capsule 500 mg PO BEDTIME 06/11/24 06/16/24 06/15/24 History ibuprofen 800 mg tablet 800 mg PO Q6H 06/11/24 06/16/24 06/16/24 05:40 History lisinopril 10 mg tablet 10 mg PO DAILY 06/11/24 06/16/24 06/14/24 History trazodone 150 mg tablet 150 mg PO BEDTIME 06/11/24 06/16/24 06/15/24 History Allergies Allergy/AdvReac Type Severity Reaction Status Date / Time meperidine [From Demerol] Allergy hillucinati Verified 04/18/24 08:35 ons Opioids - Morphine Analogues Allergy ALGY-Hives Verified 04/18/24 08:35 oxycodone [From Percocet] Allergy ADR-halluci Verified 04/18/24 08:31 nations Sulfa (Sulfonamide Allergy welps Verified 04/18/24 08:31 Antibiotics) Current Medications Generic Name Dose Route Start Last Admin Trade Name Micq PRN Reason Stop Dose Admin Sodium Chloride 1,000 mls @ 30 mls/hr 06/16/24 09:15 06/16/24 09:20 Sodium Chloride 0.9% IV 06/17/24 09:14 30 mls/hr .Q24H TIM Administration PFSH Anesthesia Medical History (Updated 04/18/24 @ 08:37 by ABI Hays) 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 HTN (hypertension) BCC (basal cell carcinoma of skin) Surgical History (Updated 04/18/24 @ 08:38 by ABI Hays) History of back surgery Hx of hernia repair H/O shoulder surgery H/O knee surgery History of kidney surgery Family History (Updated 04/18/24 @ 08:[address]) Mother Cancer lung Father Diabetes Denies family history of Clotting disorder Anesthesia complication Bleeding disorder Social History Smoking and tobacco/nicotine status: unknown if used tobacco/nicotine Alcohol intake: current Alcohol intake frequency: few times a month Alcohol type: beer Data Anesthesia Cardiac Studies: Sestamibi Stress Test (Cardiology) 01/26/20
--- NOTE | 2024-06-16 09:55 | W.PM.OPSFHP ---
Same Day Surgery H&P Indication for Procedure/HPI DATE OF PROCEDURE: June 16, 2024 CHIEF COMPLAINT/INDICATIONFOR SURGICAL PROCEDURE: screening colonoscopy PREOP DIAGNOSIS: screening PLANNED PROCEDURE: Operation Date: 06/16/24 10:00 Proposed Procedures p Colonoscopy- 09781,G0121,Z12.11(Not Applicable) - Fred Alicea MD Medications/Allergies* Home Medications Medication Instructions Recorded Confirmed Type aspirin 81 mg tablet,delayed 81 mg PO DAILY 07/08/20 06/16/24 History release (Adult Aspirin Regimen) metformin 1,000 mg tablet 1,000 mg PO BID 07/08/20 06/16/24 History metoprolol tartrate 50 mg tablet 50 mg PO DAILY 07/08/20 06/16/24 History tramadol 50 mg tablet 50 mg PO Q6H Pain 07/08/20 06/16/24 History nitroglycerin 0.3 mg sublingual 0.3 mg sublingual Q5M PRN Chest 01/03/23 06/16/24 History tablet Pain dulaglutide 0.75 mg/0.5 mL 0.75 mg SUBCUT .weekly 02/01/23 06/16/24 History subcutaneous pen injector (Trulicity) gabapentin 100 mg capsule 500 mg PO BEDTIME 06/11/24 06/16/24 History ibuprofen 800 mg tablet 800 mg PO Q6H 06/11/24 06/16/24 History lisinopril 10 mg tablet 10 mg PO DAILY 06/11/24 06/16/24 History trazodone 150 mg tablet 150 mg PO BEDTIME 06/11/24 06/16/24 History Allergies/Adverse Reactions Allergy/AdvReac Type Severity Reaction Status Date / Time meperidine [From Demerol] Allergy hillucinati Verified 04/18/24 08:35 ons Opioids - Morphine Analogues Allergy ALGY-Hives Verified 04/18/24 08:35 oxycodone [From Percocet] Allergy ADR-halluci Verified 04/18/24 08:31 nations Sulfa (Sulfonamide Allergy welps Verified 04/18/24 08:31 Antibiotics) Current Medications: Generic Name Dose Route Start Last Admin Trade Name Freq PRN Reason Stop Dose Admin Sodium Chloride 1,000 mls @ 30 mls/hr 06/16/24 09:15 06/16/24 09:20 Sodium Chloride 0.9% IV 06/17/24 09:14 30 mls/hr .Q24H TIM Administration Pertinent History/Comorbid Conditions* Medical History (Updated 06/15/23 @ 00:00 by OMAR Mora) 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 HTN (hypertension) BCC (basal cell carcinoma of skin) Surgical History (Updated 02/08/23 @ 15:52 by Suzi Campos MD) History of back surgery Hx of hernia repair H/O shoulder surgery H/O knee surgery History of kidney surgery Family History (Updated 04/18/24 @ 08:39 by ABI Hays) Diabetes Father Cancer Mother lung Denies family history of Clotting disorder Anesthesia complication Bleeding disorder Social History Smoking and tobacco/nicotine status: unknown if used tobacco/nicotine Alcohol intake: current Alcohol intake frequency: few times a month Alcohol type: beer Pertinent Exam Findings alert, oriented x 3, clear to auscultation bilaterally, regular rate & rhythm and procedure specific exam findings Abdomen soft, nt, nd Recommendations Surgery/Procedure today Coding Level of Care Code Acute Code for Chg Faisal
[2024-06-16 10:14] VITALS: BP 135/80; PULSE 72; RESP 18; TEMP 36.1; O2SAT 96
[2024-06-16 10:24] VITALS: BP 135/78; PULSE 73; RESP 18; TEMP 36.2; O2SAT 95
--- NOTE | 2024-06-16 10:39 | ANE.PACU2 ---
Inpatient post-anesthesia follow up: Airway intact: Yes Vital signs: Temperature 97.1 F Pulse Rate 73 Respiratory Rate 18 Blood Pressure 135/78 Pulse Oximetry 95 Oxygen Delivery Me thod Room Air Oxygen Flow Rate Fraction of Inspir ed Oxygen Hydration adequate: Yes Nausea and vomiting: No Pain level: 1 Mental status: Baseline
== END 2024-06-16 10:59 | disposition home or self-care (01) ==
PROVIDERS: PCP Nurse Practitioner Family; Visit Provider Student in an Organized Health Care Education/Training Program
PROC: 0DJD8ZZ Inspection of Lower Intestinal Tract, Via Natural or Artificial Opening Endoscopic (ICD-10-PCS; CPT 45378; principal; 2024-06-16 10:00)
DX: Z12.11 Encounter for screening for malignant neoplasm of colon (principal); Z79.82 Long term (current) use of aspirin; I10 Essential (primary) hypertension; K57.30 Diverticulosis of large intestine without perforation or abscess without bleeding; I25.2 Old myocardial infarction; E11.9 Type 2 diabetes mellitus without complications; E78.5 Hyperlipidemia, unspecified; E66.01 Morbid (severe) obesity due to excess calories; Z68.32 Body mass index [BMI] 32.0-32.9, adult
CPT/HCPCS: 36416; 82962; G0121; J2704; J7030

== ENCOUNTER 2024-11-12 08:55 | Outpatient (CLI) | payer MEDICARE, SELFPAY ==
--- NOTE | 2024-11-12 08:59 | CT_ITS ---
WS: [id number] CT HEAD TECHNIQUE: Noncontrast CT of the head obtained from the skullbase to the vertex. CLINICAL INFORMATION: ESSENTIAL HTN/ABNORMAL WEIGHT LOSS COMPARISON: None. DLP: 1163.[address] scans at [facility] use at least one of these dose optimization techniques: automated exposure control; mA and/or kV adjustment per patient size (includes targeted exams where dose is matched to clinical indication); or iterative reconstruction. FINDINGS: No evidence of intracranial hemorrhage or mass effect. Ventricular system and basal cisterns are patent. Mild small vessel changes with mild parenchymal volume loss. No extra-axial fluid collections. No evidence of mass or mass effect. Vascular calcification. Paranasal sinuses and mastoid air cells are well aerated. .Normal visualized soft tissues. CT/CT head wo con* [id number] IMPRESSION: 1. No evidence of intracranial hemorrhage or mass effect. 2. No acute intracranial findings.
== END 2024-11-12 08:56 | disposition home or self-care (01) ==
PROVIDERS: PCP Nurse Practitioner Family; Visit Provider Nurse Practitioner Family
DX: R41.0 Disorientation, unspecified (principal); I10 Essential (primary) hypertension; R63.4 Abnormal weight loss; R93.0 Abnormal findings on diagnostic imaging of skull and head, not elsewhere classified; I67.2 Cerebral atherosclerosis
CPT/HCPCS: 70450

== ENCOUNTER 2024-11-14 08:07 | Outpatient (CLI) | payer MEDICARE, SELFPAY ==
--- NOTE | 2024-11-14 | ECG_ITS ---
[employer] Test Date: 2024-11-14 Pat Name: Pb Tejeda Department: Room: Gender: Male Market Consultant: : 1955 Requested By: Tatiana Spring Order Number: [id number] Sandhu MD: Megan Rucker M.D. Interpretive Statements Lung unchanged pre/post procedure; Intraprocedure shortess of breath; Symptoms resoled by discharge PROCEDURE: At the baseline, the EKG revealed normal sinus rhythm with a normal ST Ts.. The baseline heart was 71 bpm with a blood pressue of 134/70 mm of Hg Lexiscan was infused over a period of 20 seconds. A total of 0.4 milligrams of Lexiscan was infused. The stress phase was continued for a total of 5 minutes. Heart rate at the end of the stress phase was 83 bpm with a blood pressure 132/78 mm of Hg. The EKG at the peak infusion revealed no significant changes. Sestamibi was injected 20 seconds after the Lexiscan infusion. Heart rate at the end of the recovery phase was 77 bpm with a blood pressure of 132/78 mm of Hg. CONCLUSION: 1. No significant EKG changes with the LexiScan infusion 2. No LexiScan induced chest pain or cardiac arrhythmia 3. Normal blood pressure and heart rate response 4. Sestamibi/sestamibi perfusion scan pending; see separate report. Electronically Signed On 11-16-2024 13:01:59 CDT by Megan Rucker M.D. [email or web address]
[2024-11-14 08:30] VITALS: BMI 32.2
--- NOTE | 2024-11-14 08:32 | NMCV_ITS ---
NM too perf SPECT r/s* [id number] Pb Tejeda Age: 69 Gender: M : 1955 Exam Date: 11/14/2024 09:12 Ordering Phys: aTtiana Spring NP Technologist: NIALL Berrios Exam Location: [facility] Indications: cp STRESS TEST Please see separate stress test report in [facility] for full findings IMAGE PROTOCOL Rest/Stress 1 Lexiscan Day Radiopharmaceutical Dose (mCi) Administration Site Administered by Rest: Tc-99m 10.4 IV NIALL Berrios Sestamibi Stress:Tc-99m 32.8 IV NIALL Corona Sestamibi Rest: 14-Nov-2024 60 Discovery 630 Stress: 14-Nov-2024 30 Discovery 630 0.4mg Lexiscan. Images obtained in supine and prone position. SPECT RESULTS Technical Quality: Good Raw Data Analysis: Normal Image Corrections: No attenuation or motion correction applied Summed Stress Score: 2 Summed Rest Score: 1 Summed Difference Score: 2 PERFUSION FINDINGS Small area of slightly decreased tracer uptake was noted in the basal and mid inferolateral segment, with reversibility in the supine imaging. However with the prone imaging, no significant Perfusion normalities were noted FUNCTIONAL RESULTS (calculated via Gated SPECT) Stress Image LV EF (%): 62 Stress EDV (mL):113 TID: 1.29 Stress ESV (mL):43 FUNCTIONAL FINDINGS: Segmental wall motion analysis revealing no gross wall motion abnormalities IMPRESSIONS 1. Myocardial perfusion imaging revealing small area of inconsistent reversibility in the basal and mid inferolateral region, suggesting ischemia in the distribution of the left circumflex artery. However because of the inconsistency, this could be artifactual. 2. Normal LV ejection fraction of 63% 3. LV wall motion analysis revealing no gross wall motion abnormalities. 4. LV volume, upper limit of normal 5. Elevated transient ischemic dilatation ratio, may suggest endocardial ischemia. However the positive predictive value of this finding is limited. Clinical correlation is recommended Dr Megan Rucker MD [facility] (Electronically Signed) Final Date: 16 November 2024 13:41 S
[2024-11-14] MEDS: regadenoson 0.4 Mg/5 ml Syringe IVP (09:35)
[2024-11-14 09:47] VITALS: BP 132/78; PULSE 82
== END 2024-11-14 08:08 | disposition home or self-care (01) ==
LOC: CDL 08:09
PROVIDERS: PCP Nurse Practitioner Family; Visit Provider Nurse Practitioner Family
DX: I10 Essential (primary) hypertension (principal); R42 Dizziness and giddiness; R93.1 Abnormal findings on diagnostic imaging of heart and coronary circulation
CPT/HCPCS: 36415; 78452; 93017; 96374; A9500; J2785

== ENCOUNTER 2025-01-10 12:21 | Emergency (ER) | payer MEDICARE, SELFPAY ==
[2025-01-10 12:25] VITALS: BP 147/84; PULSE 85; RESP 18; TEMP 36.8; O2SAT 97; BMI 32.1
--- NOTE | 2025-01-10 13:06 | XRR_ITS ---
PROCEDURE INFORMATION: Exam: XR Chest Exam date and time: 01/10/2025 1:08 PM Age: 69 years old Clinical indication: Injury or trauma; Other: Tree fell on him; Blunt trauma (contusions or hematomas); Prior surgery; Surgery date: 6+ months; Surgery type: Cardiac stent; Additional info: Dyspnea/cough TECHNIQUE: Imaging protocol: Radiologic exam of the chest. Views: 1 view. COMPARISON: CR XR ribs LT mn 3V w CXR1V [id number] 06/07/2023 3:24 PM FINDINGS: Lungs: Unremarkable. No infiltrate or consolidation. Pleural spaces: Unremarkable. No pleural effusion. No pneumothorax. Heart/Mediastinum: Unremarkable. No cardiomegaly. Bones/joints: Visualized osseous structures show no acute abnormality. Postsurgical change about both shoulders, as seen with 2022 exam. XR/XR chest 1V portable [id number] IMPRESSION: No acute cardiopulmonary abnormality.
--- NOTE | 2025-01-10 13:06 | CTR_ITS ---
PROCEDURE INFORMATION: Exam: CT Cervical Spine Without Contrast Exam date and time: 01/10/2025 1:12 PM Age: 69 years old Clinical indication: Injury or trauma; Other: Tree fell on him; Blunt trauma TECHNIQUE: Imaging protocol: Computed tomography of the cervical spine without contrast. Radiation optimization: All CT scans at this facility use at least one of these dose optimization techniques: automated exposure control; mA and/or kV adjustment per patient size (includes targeted exams where dose is matched to clinical indication); or iterative reconstruction. COMPARISON: CT cervical spin wo con* [id number] 06/18/2018 12:32 PM RADIATION DOSE METRICS: Total DLP (mGy-cm): 323.3 FINDINGS: Bones: No acute fracture. Loss of the normal cervical lordosis with minimal kyphosis. Moderate degenerative disc disease at C5-C6 and C6-C7 and mild degenerative disc disease at C4-C5. Moderate right-sided spinal stenosis at C5-C6 due to broad-based disc osteophyte complex. Qrik-bb-lgmlilee spinal stenosis at C6-C7 due to disc osteophyte complex posteriorly.. Multilevel uncovertebral spurring and facet hypertrophy. Mild left neural foraminal stenosis at C3-C4. Moderate right and mild left neural foraminal stenoses at C5-C6 due to uncovertebral spurring. Moderate left neural foraminal stenosis at C6-C7 due to uncovertebral spurring. Lungs: Lung apices are normal. Soft tissues: Unremarkable. CT/CT cervical spin wo con* [id number] IMPRESSION: 1. No acute cervical spine fracture. 2. Degenerative changes of the cervical spine with multilevel stenoses as discussed.
--- NOTE | 2025-01-10 13:06 | CTR_ITS ---
PROCEDURE INFORMATION: Exam: CT Head Without Contrast Exam date and time: 01/10/2025 1:12 PM Age: 69 years old Clinical indication: Injury or trauma; Other: Tree fell on him; Blunt trauma (contusions or hematomas); Without loss of consciousness TECHNIQUE: Imaging protocol: Computed tomography of the head without contrast. Radiation optimization: All CT scans at this facility use at least one of these dose optimization techniques: automated exposure control; mA and/or kV adjustment per patient size (includes targeted exams where dose is matched to clinical indication); or iterative reconstruction. COMPARISON: CT head wo con* [id number] 11/12/2024 9:24 AM RADIATION DOSE METRICS: Total DLP (mGy-cm): 1182.4 FINDINGS: Brain: Normal. No hemorrhage. Unremarkable white matter. No mass effect. Cerebral ventricles: No ventriculomegaly. Paranasal sinuses: Visualized sinuses are unremarkable. No fluid levels. Mastoid air cells: Visualized mastoid air cells are well aerated. Bones: See Soft tissues finding. Soft tissues: Left parietal scalp hematoma. No fractures are seen. CT/CT head wo con* [id number] IMPRESSION: 1. No acute intracranial finding. 2. Left parietal scalp hematoma.
--- NOTE | 2025-01-10 13:09 | ED_ITS ---
HPI - Trauma 2 General: Chief Complaint: Trauma Stated Complaint: tree fell on him (2ft diameter) Time Seen by Provider: 01/10/25 12:55 History of Present Illness: 61-year-old male presents emergency room is working on pushing a tree over with a tractor building a tree limb came down and hit the tractor several the branches hit up against him as well he did not lose consciousness he is not on any anticoagulants he was not thrown from the tractor the tractor did not rollover there was significant amount of damage to the tractor however. Associated symptoms: Denies abdominal pain, back pain, chest pain, chills or fever(s) Related Data Home Medications ?Medication ?Instructions ?Recorded ?Confirmed aspirin 81 mg tablet,delayed 81 mg PO DAILY 07/08/20 0 01/10/25 release (Adult Aspirin Regimen) metformin 1,000 mg tablet 1,000 mg PO BID 07/08/20 tramadol 50 mg tablet 50 mg PO Q6H Pain 07/08/20 0 01/10/25 nitroglycerin 0.3 mg sublingual 0.3 mg sublingual Q5M PRN Chest 01/03/23 01/10/25 tablet Pain dulaglutide 0.75 mg/0.5 mL 0.75 mg SUBCUT .weekly 01/2001/10/25 [facility] gabapentin 100 mg capsule See Rx Instructions .Route . COMPLEX 06/11/24 01/10/25 ibuprofen 800 mg tablet 800 mg PO Q6H 06/11/2401/10 trazodone 150 mg tablet 150 mg PO BEDTIME 06/11/24 0 01/10/25 amlodipine 5 mg tablet 5 mg PO DAILY 01/10/2501/10 losartan 25 mg tablet 25 mg PO DAILY 01/10/2512/22 metoprolol succinate 100 mg 100 mg PO DAILY 01/10/25 0 01/10/25 tablet,extended release 24 hr Previous Rx's ?Medication ?Instructions ?Recorded diclofenac sodium 75 mg 75 mg PO Q12H PRN pain #20 t abs 01/10/25 tablet,delayed release tizanidine 4 mg tablet 4 mg PO Q6H PRN muscle spast icity 01/10/25 #20 tabs Allergies Allergy/AdvReac Type Severity Reaction Status Date / Time meperidine (From Demerol) Allergy hillucinati Verified 04/18/24 08:35 ons Opioids - Morphine Analogues Allergy ALGY-Hives Verified 04/18/24 08:35 oxycodone (From Percocet) Allergy ADR-halluci Verified 04/18/24 08:31 nations Sulfa (Sulfonamide Allergy welps Verified 04/18/24 08:31 Antibiotics) Review of Systems 2 Const: Denies: fever(s) or chills Card: Denies: chest pain Resp: Denies: dyspnea GI: Denies: abdominal pain : Denies: dysuria, urinary frequency or urinary urgency Musc: Denies: neck pain or back pain Skin/Breast: Denies: rash PFSH ED 2 PFSH: Medical History 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 HTN (hypertension) BCC (basal cell carcinoma of skin) Surgical History History of back surgery Hx of hernia repair H/O shoulder surgery H/O knee surgery History of kidney surgery Family History Mother Cancer lung Father Diabetes Denies family history of Clotting disorder Anesthesia complication Bleeding disorder Social History Smoking and tobacco/nicotine status: unknown if used tobacco/nicotine Alcohol intake: current Alcohol intake frequency: few times a month Alcohol type: beer Physical Exam 2 Const: GENERAL APPEARANCE: cooperative ORIENTATION/CONSCIOUSNESS: Yes awake, Yes oriented to person, Yes oriented to place and Yes oriented to time HENMT: COMMON NORMALS: normocephalic and hearing grossly normal bilaterally HEAD & SCALP: normocephalic OTHER: Abrasion to the right zygomatic arch Resp: COMMON NORMALS: normal respiratory effort, No retractions, No use of accessory muscles and clear to auscultation bilaterally AUSCULTATION: clear to auscultation bilaterally Cardio: COMMON NORMALS: regular rate, regular rhythm and No murmurs present (Cardio) RATE: regular rate RHYTHM: regular rhythm GI: COMMON NORMALS: Soft to palpation and No hepatosplenomegaly present A USCULTATION: Yes normoactive bowel sounds PALPATION: Yes Soft to palpation, No Tenderness to palpation present (GI), No Guarding due to palpation present (GI) and Yes No hepatosplenomegaly present Extremity: COMMON NORMALS: normal to inspection, capillary refill normal, no clubbing, cyanosis or edema, no calf tenderness and no pedal edema OTHER: Abrasion to the ulnar ridge of the right forearm Neuro: SENSORIUM/ORIENTATION: Yes oriented to person, Yes oriented to place and Yes oriented to time Skin: COMMON NORMALS: no rashes or lesions noted GENERAL SKIN EXAM: no rashes or lesions noted Procedures Laceration Laceration 1: Side (If applicable): right Size (cm): 3 Description: linear Depth: simple, single layer Local Anesthetic: lidocaine 1% Amount of anesthesia used (mL): 2 Pre-repair: wound explored and irrigated extensively Skin layer closed with: nylon Size (cm): 5-0 Number of sutures: 1 Technique: running Course 2 Vital Signs: Vital signs: Vital Signs Temperature 98.2 F 01/10/25 12:25 Pulse Rate 75 01/10/25 15:59 Respiratory Rate 18 01/10/25 12:25 Blood Pressure 147/88 01/10/25 15:59 Pulse Oximetry 98 01/10/25 15:59 Oxygen Delivery Me thod Room Air 01/10/25 15:30 MDM - Trauma Medical Decision Making Labs and imaging unremarkable did have a lot of bleeding on [place] further from the does have a laceration on the inferior aspect of the tragus extends into the earlobe. There is no assessment percent lidocaine closed with running suture of 5-0 nylon patient tolerated well discharge patient home wound care instructions apply topical antibiotic ointment. Tetanus updated. Sutures to removed in 5 to 7 days Medical Records I reviewed the patient's medical records. Lab Data I reviewed the patient's lab results. 01/10/25 12:39 01/10/25 12:39 Radiology Impressions Cervical Spine CT 01/10/25 13:06 IMPRESSION: 1. No acute cervical spine fracture. 2. Degenerative changes of the cervical spine with multilevel stenoses as discussed. Chest X-Ray 01/10/25 13:06 IMPRESSION: No acute cardiopulmonary abnormality. Head CT 01/10/25 13:06 IMPRESSION: 1. No acute intracranial finding. 2. Left parietal scalp hematoma. Laboratory Results WBC 9.84 10^3/uL (3.29-11.43) 01/10/25 12:39 RBC 4.94 10^6/uL (3.85-5.65) 01/10/25 12:39 Hgb 15.00 g/dL (11.27-16.99) 01/10/25 12:39 Hct 44.7 % (37-53) 01/10/25 12:39 MCV 90.5 fl (82-101) 01/10/25 12:39 MCH 30.4 pg (27-33) 01/10/25 12:39 MCHC 33.6 g/dL (30-55) 01/10/25 12:39 RDW 12.6 % (12.1-15.1) 01/10/25 12:39 Plt Count 262 10^3/cmm (157-399) 01/10/25 12:39 MPV 9.2 fL (7.4-10.4) 01/10/25 12:39 Neut % (Auto) 68.0 % 01/10/25 12:39 Lymph % (Auto) 24.1 % 01/10/25 12:39 [place] % (Auto) 5.6 % 01/10/25 12:39 Eos % (Auto) 1.4 % 01/10/25 12:39 Baso % (Auto) 0.5 % 01/10/25 12:39 Neut # (Auto) 6.69 10^3/uL (1.8-7.7) 01/10/25 12:39 Lymph # (Auto) 2.4 10^3/uL (0.8-4.8) 01/10/25 12:39 [place] # (Auto) 0.6 10^3/uL (0.2-0.9) 01/10/25 12:39 Eos # (Auto) 0.1 10^3/uL (0.0-0.8) 01/10/25 12:39 Baso # (Auto) 0.1 10^3/uL (0.0-0.1) 01/10/25 12:39 Nucleated RBC % (auto) 0 % 01/10/25 12:39 Nucleated RBCs # 0.0 /100WBC 01/10/25 12:39 Sodium 138 mmol/L (136-145) 01/10/25 12:39 Potassium 3.8 mmol/L (3.5-5.1) 01/10/25 12:39 Chloride 101 mmol/L (98-107) 01/10/25 12:39 Carbon Dioxide 25 mmol/L (22-29) 01/10/25 12:39 Anion Gap 15.8 (5-19) 01/10/25 12:39 BUN 22 mg/dL (8-23) 01/10/25 12:39 Creatinine 0.8 mg/dL (0.7-1.2) 01/10/25 12:39 GFR Calculation 96.1 mL/min (90-130) 01/10/25 12:39 Glucose 128 mg/dL (65-115) H 01/10/25 12:39 Calculated Osmolality 291 mOsm/kg (285-295) 01/10/25 12:39 Calcium 9.6 mg/dL (8.5-10.5) 01/10/25 12:39 Total Bilirubin 0.4 mg/dL (0.15-1.2) 01/10/25 12:39 AST 22 U/L (0-40) 01/10/25 12:39 ALT 22 U/L (0-41) 01/10/25 12:39 Alkaline Phosphatase 72 U/L (40-130) 01/10/25 12:39 Total Protein 7.5 g/dL (6.6-8.7) 01/10/25 12:39 Albumin 4.4 g/dL (3.5-5.2) 01/10/25 12:39 Globulin 3.1 g/dL (1.3-4.6) 01/10/25 12:39 All radiology interpretation(s) finalized by discharge Discharge Plan Discharge Patient Disposition: Home Clinical Impression: Accidentally struck by falling tree, Laceration of ear, Abrasion of face Condition: Stable Prescriptions: New tizanidine 4 mg tablet 4 mg PO Q6H PRN (Reason: muscle spasticity) Qty: 20 0RF Rx Instructions: do not exceed 3 doses per 24 hrs diclofenac sodium 75 mg tablet,delayed release (DR/EC) 75 mg PO Q12H PRN (Reason: pain) Qty: 20 0RF No Action metformin 1,000 mg tablet 1,000 mg PO BID aspirin [Adult Aspirin Regimen] 81 mg tablet,delayed release (DR/EC) 81 mg PO DAILY tramadol 50 mg tablet 50 mg PO Q6H nitroglycerin 0.3 mg tablet, sublingual 0.3 mg sublingual Q5M PRN (Reason: Chest Pain) Rx Instructions: do not exceed 3 doses per episode Trulicity 0.75 mg/0.5 mL pen injector 0.75 mg SUBCUT .weekly Rx Instructions: Sunday ibuprofen 800 mg tablet 800 mg PO Q6H trazodone 150 mg tablet 150 mg PO BEDTIME gabapentin 100 mg capsule See Rx Instructions .ROUTE .COMPLEX Rx Instructions: Take 2 capsules by mouth in the morning and 2 capsules in the evening. metoprolol succinate 100 mg tablet extended release 24 hr 100 mg PO DAILY amlodipine 5 mg tablet 5 mg PO DAILY losartan 25 mg tablet 25 mg PO DAILY Discharge Orders: Discharge ED (Routine); Ordered 01/10/25 Ordered By: Beau Skinner Referrals: Tatiana Spring NP [Primary Care Provider, Unknown] Discharge Diet: Usual diet Discharge Activity: Increase activity as tolerated Patient Instructions: Opioid Safety, Pain Management Activity Restrictions/Additional Instructions: Thank you for choosing [facility] for your healthcare needs today. It is very important that you follow up as instructed or that you return to the Emergency Department should you have concerns or if your condition changes or worsens in any way. You were seen in the emergency room after being struck by a falling tree. CT of your head and neck were normal. Did have abrasions on your face and a laceration of the right ear. Laceration was closed with sutures that should be removed in approximately 5 to 7 days. Apply [id number]-[id number] topical antibiotic ointment to the abrasions and to the laceration 1-2 times a day until they are healed. Print Language: Croatian Coding Level of Care Code ED Housekeeping Staff for Malina Malone
[2025-01-10 13:16] LABS: Basophils # 0.1 10^3/uL (0.0-0.1); Basophils % 0.5 %; Eosinophils # 0.1 10^3/uL (0.0-0.8); Eosinophils % 1.4 %; Hematocrit 44.7 % (37-53); Lymphocytes # 2.4 10^3/uL (0.8-4.8); Lymphocytes % 24.1 %; Mean Corpuscular HGB Conc 33.6 g/dL (30-55); Mean Corpuscular Hemoglobin 30.4 pg (27-33); Mean Corpuscular Volume 90.5 fl (82-101); Mean Platelet Volume 9.2 fL (7.4-10.4); Monocytes # 0.6 10^3/uL (0.2-0.9); Monocytes % 5.6 %; Neutrophils # 6.69 10^3/uL (1.8-7.7); Nucleated Red Blood Cells % 0 %; Platelet Count 262 10^3/cmm (157-399); Red Blood Count 4.94 10^6/uL (3.85-5.65); Red Cell Distribution Width 12.6 % (12.1-15.1); White Blood Count 9.84 10^3/uL (3.29-11.43)
[2025-01-10 13:26] LABS: Alanine Aminotransferase 22 U/L (0-41); Albumin Level 4.4 g/dL (3.5-5.2); Alkaline Phosphatase 72 U/L (40-130); Anion Gap 15.8 (5-19); Aspartate Amino Transferase 22 U/L (0-40); Blood Urea Nitrogen 22 mg/dL (8-23); Calcium 9.6 mg/dL (8.5-10.5); Carbon Dioxide 25 mmol/L (22-29); Chloride 101 mmol/L (98-107); Globulin 3.1 g/dL (1.3-4.6); Glomerular Filtration Rate 96.1 mL/min (90-130); Glucose 128 mg/dL (65-115); Osmolality Calculated 291 mOsm/kg (285-295); Potassium 3.8 mmol/L (3.5-5.1); Sodium 138 mmol/L (136-145); Total Bilirubin 0.4 mg/dL (0.15-1.2); Total Protein 7.5 g/dL (6.6-8.7)
[2025-01-10] MEDS: tetanus-dipt-pertussis 0.5 mL SDV IM (13:35)
[2025-01-10 14:00] VITALS: BP 147/91; PULSE 75; O2SAT 95
[2025-01-10] MEDS: lidocaine-epi 1% 20 mL INJ INJECTION (15:17)
--- NOTE | 2025-01-10 15:17 | PC.NURSE ---
LIDOCAINE WITH EPI GIVEN TO DR. MCCLELLAND FOR ADMINISTRATION.
[2025-01-10 15:30] VITALS: BP 134/88; PULSE 75; O2SAT 100
[2025-01-10 15:59] VITALS: BP 147/88; PULSE 75; O2SAT 98
== END 2025-01-10 16:00 | disposition home or self-care (01) ==
PROVIDERS: Emergency Provider Family Medicine; PCP Nurse Practitioner Family
DX: S01.311A Laceration without foreign body of right ear, initial encounter (principal); W20.8XXA Other cause of strike by thrown, projected or falling object, initial encounter; Z79.82 Long term (current) use of aspirin; Z79.84 Long term (current) use of oral hypoglycemic drugs; I10 Essential (primary) hypertension; Z85.828 Personal history of other malignant neoplasm of skin
CPT/HCPCS: 12013; 36415; 70450; 71045; 72125; 80053; 85025; 90471; 90715; 99284; J9999

== ENCOUNTER → 2025-03-18 13:52 | Outpatient (BNVA) | payer MEDICARE, SELFPAY | PROVIDERS: PCP Nurse Practitioner Family; Visit Provider Internal Medicine | DX: R94.39 Abnormal result of other cardiovascular function study (principal); I10 Essential (primary) hypertension; E11.9 Type 2 diabetes mellitus without complications; Z79.84 Long term (current) use of oral hypoglycemic drugs; Z79.85 Long-term (current) use of injectable non-insulin antidiabetic drugs; R06.09 Other forms of dyspnea; Z79.82 Long term (current) use of aspirin; Z87.891 Personal history of nicotine dependence; R07.9 Chest pain, unspecified | CPT/HCPCS: 93005; 99204 ==